=== PATIENT | female | born 1980 | race American Indian/Alaskan Native ===

== ENCOUNTER 2018-02-04 18:21 | Observation (INO) | payer MEDICAID ==
[2018-02-04] MEDS ORDERED: Sodium Chloride 0.9% 500 ML IV STA (18:49)
[2018-02-04] MEDS ORDERED: Metoprolol 1 mg/ml Inj IVP ONE ×3 (18:50→20:41)
[2018-02-04 18:57] LABS: URINE APPEARANCE CLEAR (CLEAR); URINE BILIRUBIN NEGATIVE (NEGATIVE); URINE BLOOD NEGATIVE (NEGATIVE); URINE COLOR YELLOW (YELLOW); URINE GLUCOSE (UA) NEGATIVE (NEGATIVE); URINE LEUKOCYTE ESTERASE NEGATIVE Leu/uL (NEGATIVE); URINE PROTEIN 100 mg/dL (<30 mg/dL); URINE UROBILINOGEN 0.2 E.U./dL (<1 E.U./dL)
[2018-02-04 19:00] LABS: HCG,QUALITATIVE URINE NEGATIVE (NEGATIVE)
--- NOTE | 2018-02-04 19:03 | ED PDOC ---
Arrival/HPI - General Chief Complaint: Substance Abuse Time Seen by Provider: 02/04/18 18:39 Historian: Patient - Critical Care Critical Care Minutes: 30 minutes - History of Present Illness Narrative History of Present Illness (Text): 02/04/18 18:58 37 year old female, with past medical history of hypertension, presents with feelings of racing heart and lightheadedness, since this afternoon. Patient states she was smoking hooka with friends after work, when she began "feeling weird". Patient states she became lightheaded. Patient also states she felt her heart pounding and palpitations. Patient states she thought someone put drugs in her hooka, and called her brother. Patient also informs she did not take her hypertension medication today. Patient does not smoke cigarettes or use drugs, yet uses alcohol occasionally. Time/Duration: 1-3 hours Past Medical History - Provider Review Nursing Documentation Reviewed: Yes - Infectious Disease Hx of Infectious Diseases: None - Cardiac Hx Hypertension: Yes - Psychiatric Hx Substance Use: No Family/Social History - Physician Review Nursing Documentation Reviewed: Yes Family/Social History: No Known Family HX Smoking Status: Never Smoked Hx Alcohol Use: Yes Hx Substance Use: No Allergies/Home Meds Allergies/Adverse Reactions: Allergies ciprofloxacin [From Cipro] Allergy (Verified 02/04/18 18:33) URTICARIA Home Medications: Home Meds Medication Instructions Recorded Confirmed Metoprolol Succinate XL [Toprol XL] 50 mg PO BID 10/21/15 02/04/18 RX: Lisinopril [Zestril] 10 mg PO DAILY 02/04/18 02/04/18 Review of Systems - Physician Review All systems were reviewed & negative as marked: Yes - Review of Systems Cardiovascular: Palpitations Neurological: Dizziness (lightheadedness) Physical Exam Vital Signs Reviewed: Yes Vital Signs Temp Pulse Resp BP Pulse Ox 02/04/18 18:45 109 H 20 197/110 H 98 02/04/18 18:23 98 F 114 H 18 208/106 H 99 Temperature: Afebrile Blood Pressure: Hypertensive Pulse: Tachycardic Respiratory Rate: Normal Pain Distress: None Mental Status: Positive for: Alert and Oriented X 3 - Systems Exam Head: Present: Atraumatic, Normocephalic Pupils: Present: PERRL Extroacular Muscles: Present: EOMI Conjunctiva: Present: Normal Mouth: Present: Moist Mucous Membranes Neck: Present: Normal Range of Motion Respiratory/Chest: Present: Clear to Auscultation, Good Air Exchange. No: R espiratory Distress, Accessory Muscle Use Cardiovascular: Present: Regular Rate and Rhythm, Normal S1, S2. No: Murmurs Abdomen: No: Tenderness, Distention, Peritoneal Signs Back: Present: Normal Inspection Upper Extremity: Present: Normal Inspection. No: Cyanosis, Edema Lower Extremity: Present: Normal Inspection. No: Edema Neurological: Present: GCS=15, CN II-XII Intact, Speech Normal Skin: Present: Warm, Dry, Normal Color. No: Rashes Psychiatric: Present: Alert, Oriented x 3, Normal Insight, Normal Concentration, Anxious Medical Decision Making ED Course and Treatment: 02/04/18 19:06 Impression: 37 year old female presents with feelings of racing heart and palpitations. Plan: -- EKG -- Labs -- Lopressor -- Urinalysis -- Reassess and disposition Prior Visits: Notes and results from previous visits were reviewed. Progress Notes: 02/04/18 20:49 Discussed with the biomedical analytical scientist and Dr.G De La Rosa. Patient will be placed on telemetry observation on the hospitalist service. She no longer feels palpitations and her heart rate is markedly improved. Her blood pressure remains elevated. 02/04/18 20:52 EKG shows sinus tachycardia rate approximately [address] or T-wave changes. - Medication Orders Current Medication Orders: Sodium Chloride (Sodium Chloride 0.9%) 500 mls @ 1,000 mls/hr IV .Q30M STA Stop: 02/04/18 19:18 Discontinued Medications Metoprolol Tartrate (Lopressor) 5 mg IVP ONCE ONE Stop: 02/04/18 18:51 - Scribe Statement The provider has reviewed the documentation as recorded by the Jeevan Gutiérrez Provider Scribe Attestation: All medical record entries made by the Scribe were at my direction and personally dictated by me. I have reviewed the chart and agree that the record accurately reflects my personal performance of the history, physical exam, medical decision making, and the department course for this patient. I have also personally directed, reviewed, and agree with the discharge instructions and disposition. Disposition/Present on Arrival - Present on Arrival Any Indicators Present on Arrival: No History of DVT/PE: No History of Uncontrolled Diabetes: No Urinary Catheter: No History of Decub. Ulcer: No History Surgical Site Infection Following: None - Disposition Have Diagnosis and Disposition been Completed?: Yes Diagnosis: Hypertension, Palpitations Disposition: HOSPITALIZED Disposition Time: 20:53 Patient Plan: Observation, Telemetry Patient Problems: Current Active Problems Problem Status Onset Hypertension Acute Palpitations Acute Condition: IMPROVED
[2018-02-04 19:04] LABS: URINE RBC NEGATIVE /hpf (0-2); URINE WBC 0 - 2 /hpf (0-6)
[2018-02-04 19:15] LABS: EOS % 0.3 % (1.5-5.0); GRAN # 5.45 (1.4-6.5); GRAN % 69.5 % (50.0-68.0); HEMOGLOBIN 11.3 g/dL (12.0-16.0); LYMPH # 2.1 (1.2-3.4); LYMPH % 26.8 % (22.0-35.0); MEAN CELL VOLUME 85.1 fl (80.0-105.0); MEAN CORPUSCULAR HEMOGLOBIN 28.5 pg (25.0-35.0); MEAN CORPUSCULAR HGB CONC 33.4 g/dl (31.0-37.0); MEAN PLATELET VOLUME 9.4 fl (7.0-11.0); MONO # 0.3 (0.1-0.6); MONO % 3.4 % (1.0-6.0); RBC 3.97 10^6/uL (3.5-6.1); RED CELL DISTRIBUTION WIDTH 11.8 % (11.5-14.5); WHITE BLOOD COUNT 7.8 10^3/ul (4.5-11.0)
[2018-02-04 19:29] LABS: ACETAMINOPHEN < 10.0 ug/ml (10.0-20.0); SALICYLATE 3 mg/dL (2.0-20.0)
[2018-02-04 19:38] LABS: BARBITURATES, UR NEGATIVE (NEGATIVE); BENZODIAZEPINES, UR NEGATIVE (NEGATIVE); OPIATES, UR NEGATIVE (NEGATIVE); PHENCYCLIDINE, UR NEGATIVE (NEGATIVE)
[2018-02-04 19:39] LABS: ALB/GLOB RATIO 1.3 (1.1-1.8); ALBUMIN 4.8 g/dL (3.0-4.8); ALT/SGPT 21 U/L (7-56); AST/SGOT 22 U/L (14-36); BLOOD UREA NITROGEN 11 mg/dL (7-21); CALCIUM 8.7 mg/dL (8.4-10.5); GFR NON-AFRICAN AMERICAN > 60
[2018-02-04] MEDS ORDERED: Metoprolol Succinate 50 mg XL Tab PO SCH (23:15)
[2018-02-04] MEDS ORDERED: Potassium Chloride 20 mEq ER Tab PO STA (23:23)
[2018-02-05] MEDS ORDERED: Labetalol 5 mg/ml Inj 20ML IV STA (00:10)
--- NOTE | 2018-02-05 00:27 | CP.PCM.PCO ---
Addendum Addendum: Night float progress note S: Resident paged for pt complaining of throbbing L sided headache. Pt seen immediately after page was placed. Pt complains of L sided headache, with L sided leg tingling. Full neuro examination was done. Pt denies chest pain, palpitations, SOB, diarrhea, constipation, diarrhea. O: BP has dropped to 161/104 P: 92 after given Hydralazine and lopressor IVP. No focal neuro deficits on neuro exam. CN 2-12 intact. Sensation/strength intact b/l u/l extremities. A/P: Continue monitor pt neuro check q2h Lisinopril po 10mg
--- NOTE | 2018-02-05 01:44 | CP.PCM.HP ---
History of Present Illness - History of Present Illness History of Present Illness: HISTORY & PHYSICAL NOTE FOR HOSPITALIST TEAM Kerline Morales D.O. PGY-1 CC: Lightheadedness, vision changes, chest pain, palpitations 37 y/o F with LMP 6 days ago with regular menstrual cycles with PMH of HTN presents with complaints of lightheadedness, dizziness, chest palpitations, chest pain and vision changes after she had smoked hookah (flavored tobacco) at a friends house earlier this afternoon. She started to feel "wobbly", chest palpitations, chest tightness, nausea, drowsiness and L sided lower extremity numbness about 20 minutes after she inhaled the smoke. She reports that she smokes on occasion, however only had an adverse reaction this one particular time. She is unsure of whether there were any other illicit drugs on the tobacco, but does not recall seeing illicit drugs nearby. She denies any other illicit drug use. She took an excedrin tablet without relief. She reports that s he had HTN for several years, however is non-compliant with her medications. She works 2 jobs and admits she is very stressed. She denies recent travel. She denies fevers, chills, shortness of breath, vomiting, weakness, constipation, diarrhea, dysuria PMD: Dr. Mendes Cardio: [facility] [place] PMH: HTN, endometrial hyperplasia, fibroids All: Ciprofloxacin- hives SH: Denies smoking, alcohol PSH: denies Hosp: 10 years ago-elevated d-dimer FH: Mother: HTN. Father: Stroke Meds: Metoprolol, lisinopril. Present on Admission - Present on Admission Any Indicators Present on Admission: No Review of Systems - Review of Systems Review of Systems: as per HPI Past Patient History - Infectious Disease Hx of Infectious Diseases: None - Past Social History Smoking Status: Never Smoked - CARDIAC Hx Cardiac Disorders: Yes Hx Hypertension: Yes - PULMONARY Hx Respiratory Disorders: Yes Hx Asthma: Yes Hx Pneumonia: Yes - NEUROLOGICAL Hx Neurological Disorder: No - HEENT Hx HEENT Problems: No - RENAL Hx Chronic Kidney Disease: No - ENDOCRINE/METABOLIC Hx Endocrine Disorders: No - HEMATOLOGICAL/ONCOLOGICAL Hx Blood Disorders: No - INTEGUMENTARY Hx Dermatological Problems: No - MUSCULOSKELETAL/RHEUMATOLOGICAL Hx Musculoskeletal Disorders: No Hx Falls: No - GASTROINTESTINAL Hx Gastrointestinal Disorders: Yes Hx Ulcer: Yes - GENITOURINARY/GYNECOLOGICAL Hx Genitourinary Disorders: No - PSYCHIATRIC Hx Psychophysiologic Disorder: No Hx Substance Use: No - SURGICAL HISTORY Hx Surgeries: No Meds Allergies/Adverse Reactions: Allergies Allergy/AdvReac Type Severity Reaction Status Date / Time ciprofloxacin [From Cipro] Allergy URTICARIA Verified 02/04/18 18:33 Physical Exam - Constitutional Appears: Well, Non-toxic, No Acute Distress - Head Exam Head Exam: ATRAUMATIC, NORMAL INSPECTION - Eye Exam Eye Exam: EOMI, Normal appearance, PERRL - ENT Exam ENT Exam: Mucous Membranes Moist, Normal Exam - Neck Exam Neck exam: Positive for: Normal Inspection - Respiratory Exam Respiratory Exam: Clear to Auscultation Bilateral, NORMAL BREATHING PATTERN - Cardiovascular Exam Cardiovascular Exam: REGULAR RHYTHM, +S1, +S2 - GI/Abdominal Exam GI & Abdominal Exam: Normal Bowel Sounds, Soft - Extremities Exam Extremities exam: Positive for: normal inspection, pedal pulses present. Negative for: calf tenderness - Back Exam Back exam: NORMAL INSPECTION - Neurological Exam Neurological exam: Alert, CN II-XII Intact, Oriented x3 - Psychiatric Exam Psychiatric exam: Normal Affect, Normal Mood - Skin Skin Exam: Dry, Intact, Warm Results - Vital Signs Recent Vital Signs: Last Vital Signs Temp 98.0 F 02/04/18 23:19 Pulse 75 02/04/18 23:34 Resp 17 02/04/18 23:19 BP 175/121 H 02/04/18 23:34 Pulse Ox 100 02/04/18 23:19 - Labs Result Diagrams: 02/04/18 19:08 02/04/18 19:08 Labs: Laboratory Results - last 24 hr 02/04/18 02/04/18 02/04/18 18:53 18:53 19:08 WBC 7.8 RBC 3.97 Hgb 11.3 L Hct 33.8 L MCV 85.1 MCH 28.5 MCHC 33.4 RDW 11.8 Plt Count 276 MPV 9.4 Gran % 69.5 H Lymph % (Auto) 26.8 [place] % (Auto) 3.4 Eos % (Auto) 0.3 L Baso % (Auto) 0.0 Gran # 5.45 Lymph # (Auto) 2.1 [place] # (Auto) 0.3 Eos # (Auto) 0.0 Baso # (Auto) 0.00 D-Dimer, Quantitative Sodium Potassium Chloride Carbon Dioxide Anion Gap BUN Creatinine Est GFR ( Amer) Est GFR (Non-Af Amer) Random Glucose Calcium Magnesium Total Bilirubin AST ALT Alkaline Phosphatase Total Creatine Kinase Total Protein Albumin Globulin Albumin/Globulin Ratio Urine Color Yellow Urine Appearance Clear Urine pH 6.0 Ur Specific Bunch >= 1.030 Urine Protein 100 H Urine Glucose (UA) Negative Urine Ketones Negative Urine Blood Negative Urine Nitrate Negative Urine Bilirubin Negative Urine Urobilinogen 0.2 Ur Leukocyte Esterase Negative Urine RBC Negative Urine WBC 0 - 2 Ur Epithelial Cells 1 - 3 Urine Bacteria None Urine HCG, Qual Negative Salicylates Urine Opiates Screen Negative Urine Methadone Screen Negative Acetaminophen Ur Barbiturates Screen Negative Ur Phencyclidine Scrn Negative Ur Amphetamines Screen Negative U Benzodiazepines Scrn Negative U Oth Cocaine Metabols Negative U Cannabinoids Screen Positive H Alcohol, Quantitative 02/04/18 02/04/18 02/04/18 19:08 19:08 19:08 WBC RBC Hgb Hct MCV MCH MCHC RDW Plt Count MPV Gran % Lymph % (Auto) [place] % (Auto) Eos % (Auto) Baso % (Auto) Gran # Lymph # (Auto) [place] # (Auto) Eos # (Auto) Baso # (Auto) D-Dimer, Quantitative Sodium 139 Potassium 3.0 L Chloride 99 Carbon Dioxide 27 Anion Gap 16 BUN 11 Creatinine 0.8 Est GFR ( Amer) > 60 Est GFR (Non-Af Amer) > 60 Random Glucose 132 H Calcium 8.7 Magnesium 1.8 Total Bilirubin 0.3 AST 22 ALT 21 Alkaline Phosphatase 53 Total Creatine Kinase 125 Total Protein 8.6 H Albumin 4.8 Globulin 3.8 Albumin/Globulin Ratio 1.3 Urine Color Urine Appearance Urine pH Ur Specific Bunch Urine Protein Urine Glucose (UA) Urine Ketones Urine Blood Urine Nitrate Urine Bilirubin Urine Urobilinogen Ur Leukocyte Esterase Urine RBC Urine WBC Ur Epithelial Cells Urine Bacteria Urine HCG, Qual Salicylates 3 Urine Opiates Screen Urine Methadone Screen Acetaminophen < 10.0 L Ur Barbiturates Screen Ur Phencyclidine Scrn Ur Amphetamines Screen U Benzodiazepines Scrn U Oth Cocaine Metabols U Cannabinoids Screen Alcohol, Quantitative < 10 02/04/18 19:20 WBC RBC Hgb Hct MCV MCH MCHC RDW Plt Count MPV Gran % Lymph % (Auto) [place] % (Auto) Eos % (Auto) Baso % (Auto) Gran # Lymph # (Auto) [place] # (Auto) Eos # (Auto) Baso # (Auto) D-Dimer, Quantitative 207 Sodium Potassium Chloride Carbon Dioxide Anion Gap BUN Creatinine Est GFR ( Amer) Est GFR (Non-Af Amer) Random Glucose Calcium Magnesium Total Bilirubin AST ALT Alkaline Phosphatase Total Creatine Kinase Total Protein Albumin Globulin Albumin/Globulin Ratio Urine Color Urine Appearance Urine pH Ur Specific Bunch Urine Protein Urine Glucose (UA) Urine Ketones Urine Blood Urine Nitrate Urine Bilirubin Urine Urobilinogen Ur Leukocyte Esterase Urine RBC Urine WBC Ur Epithelial Cells Urine Bacteria Urine HCG, Qual Salicylates Urine Opiates Screen Urine Methadone Screen Acetaminophen Ur Barbiturates Screen Ur Phencyclidine Scrn Ur Amphetamines Screen U Benzodiazepines Scrn U Oth Cocaine Metabols U Cannabinoids Screen Alcohol, Quantitative Assessment & Plan - Assessment and Plan (Free Text) Assessment: 37 y/o F with PMH of HTN, non compliant with medications admitted for hyper tensive crisis. Pt presented with complaints of chest tightness, dizziness, vision changes and nausea after smoking hookah (tobacco). She arrived to ED wit BP of 208/106, and Utox positive for cannabinoids. She was treated with lopressor x 3 in ED and continued with Labetalol overnight. BP improved to 170s/100s. Pt complained of L sided lower extremity numbness and L sided throbbing headache overnight. CT Head was order and was negative. Plan: Hypertensive crisis likely secondary to non-compliance vs stress vs illicit drug use Start Labetalol 20mg IVP Monitor for end-organ damage Continue home metoprolol Continue home lisinopril f/u repeat head CT HHD Chest pain r/o ACS Trend EKG & troponin Start nitroglycerin prn pain Hypokalemia Presented with K: 3.0. Replete as necessary Monitor t-wave changes on EKG Illicit drug use Urine cannibinoid (+) Advise cessation DVT/GI ppx: lvx/ptx Case seen, examined and discussed with attending physician, Dr. De La Rosa
[2018-02-05] MEDS ORDERED: Labetalol 5 mg/ml Inj 20ML IV ONE (06:04)
[2018-02-05 06:31] VITALS: RESP 20; O2SAT 96
[2018-02-05 07:12] LABS: EOS % 0.1 % (1.5-5.0); GRAN # 7.82 (1.4-6.5); GRAN % 77.3 % (50.0-68.0); HEMOGLOBIN 11.6 g/dL (12.0-16.0); LYMPH % 19.7 % (22.0-35.0); MEAN CELL VOLUME 85.3 fl (80.0-105.0); MEAN CORPUSCULAR HEMOGLOBIN 28.4 pg (25.0-35.0); MEAN CORPUSCULAR HGB CONC 33.3 g/dl (31.0-37.0); MONO # 0.3 (0.1-0.6); MONO % 2.9 % (1.0-6.0); RBC 4.08 10^6/uL (3.5-6.1); RED CELL DISTRIBUTION WIDTH 11.9 % (11.5-14.5); WHITE BLOOD COUNT 10.1 10^3/ul (4.5-11.0)
[2018-02-05 07:35] LABS: ALB/GLOB RATIO 1.2 (1.1-1.8); ALBUMIN 4.4 g/dL (3.0-4.8); ALT/SGPT 17 U/L (7-56); AST/SGOT 25 U/L (14-36); B-TYPE NATRIURETIC PEPTIDE 123 pg/mL (0-450); BLOOD UREA NITROGEN 8 mg/dL (7-21); CALCIUM 9.2 mg/dL (8.4-10.5); GFR NON-AFRICAN AMERICAN > 60; HDL CHOLESTEROL 40 mg/dL (29-60); TROPONIN I < 0.01 ng/mL
[2018-02-05 07:40] LABS: LDL CHOLESTEROL 126 mg/dL (0-129)
--- NOTE | 2018-02-05 09:29 | CARD ---
APPROVED REPORT Date of service: 02/04/2018 EKG Measurement Heart [id number] <Conclusion> Sinus tachycardia Nonspecific ST and T wave abnormality No change
[2018-02-05] MEDS ORDERED: Enoxaparin 40 mg Syringe SC SCH (10:00)
[2018-02-05 13:10] VITALS: BP 139/102; TEMP 98.3
--- NOTE | 2018-02-05 13:21 | CT ---
Date of service: 02/05/2018 PROCEDURE: CT HEAD WITHOUT CONTRAST. HISTORY: Headache COMPARISON: None available. TECHNIQUE: Axial computed tomography images were obtained through the head/brain without intravenous contrast. Supplemental Coronal and Sagittal projectections created and reviewed. Radiation dose: Total exam DLP = 929.09 mGy-cm. This CT exam was performed using one or more of the following dose reduction techniques: Automated exposure control, adjustment of the mA and/or kV according to patient size, and/or use of iterative reconstruction technique. FINDINGS: HEMORRHAGE: No intracranial hemorrhage. BRAIN: No mass effect or edema. No atrophy or chronic microvascular ischemic changes. VENTRICLES: Unremarkable. No hydrocephalus. CALVARIUM: Unremarkable. PARANASAL SINUSES: Unremarkable as visualized. No significant inflammatory changes. MASTOID AIR CELLS: Unremarkable as visualized. No inflammatory changes. OTHER FINDINGS: None. IMPRESSION: No acute intracranial abnormalities. No significant findings to account for the clinical presentation. Concordant results (preliminary interpretation) provided by [employer]. Procedure Completed: 01:42. Preliminary Report: Dictated and Authenticated: 02:35. Final Interpretation: 13:19. February 05, 2018.
--- NOTE | 2018-02-05 13:25 | RAD ---
Date of service: 02/04/2018 HISTORY: Chest pain, palpitations. COMPARISON: No prior. FINDINGS: LUNGS: No active pulmonary disease. PLEURA: No significant pleural effusion identified, no pneumothorax apparent. CARDIOVASCULAR: Normal. OSSEOUS STRUCTURES: No significant abnormalities. VISUALIZED UPPER ABDOMEN: Normal. OTHER FINDINGS: None. IMPRESSION: No active disease.
[2018-02-05 14:43] VITALS: PULSE 82
--- NOTE | 2018-02-05 20:12 | CP.PCM.DIS ---
<Akshat Westfall - Last Filed: 02/05/18 19:33> Provider - Provider Date of Admission: 02/04/18 20:54 Attending physician: Guanako Ramos MD Time Spent in preparation of Discharge (in minutes): 45 Diagnosis - Discharge Diagnosis (1) Headache Status: Acute (2) Hypertension Status: Acute (3) Palpitations Status: Acute Hospital Course - Lab Results Lab Results: Most Recent Lab Values WBC 10.1 10^3/ul (4.5-11.0) D 02/05/18 06:30 RBC 4.08 10^6/uL (3.5-6.1) 02/05/18 06:30 Hgb 11.6 g/dL (12.0-16.0) L 02/05/18 06:30 Hct 34.8 % (36.0-48.0) L 02/05/18 06:30 MCV 85.3 fl (80.0-105.0) 02/05/18 06:30 MCH 28.4 pg (25.0-35.0) 02/05/18 06:30 MCHC 33.3 g/dl (31.0-37.0) 02/05/18 06:30 RDW 11.9 % (11.5-14.5) 02/05/18 06:30 Plt Count 299 10^3/uL (120.0-450.0) 02/05/18 06:30 MPV 10.0 fl (7.0-11.0) 02/05/18 06:30 Gran % 77.3 % (50.0-68.0) H 02/05/18 06:30 Lymph % (Auto) 19.7 % (22.0-35.0) L 02/05/18 06:30 [place] % (Auto) 2.9 % (1.0-6.0) 02/05/18 06:30 Eos % (Auto) 0.1 % (1.5-5.0) L 02/05/18 06:30 Baso % (Auto) 0.0 % (0.0-3.0) 02/05/18 06:30 Gran # 7.82 (1.4-6.5) H 02/05/18 06:30 Lymph # (Auto) 2.0 (1.2-3.4) 02/05/18 06:30 [place] # (Auto) 0.3 (0.1-0.6) 02/05/18 06:30 Eos # (Auto) 0.0 (0.0-0.7) 02/05/18 06:30 Baso # (Auto) 0.00 K/mm3 (0.0-2.0) 02/05/18 06:30 D-Dimer, Quantitative 207 ng/mlDDU (0-243) 02/04/18 19:20 Sodium 142 mmol/L (132-148) 02/05/18 06:30 Potassium 3.8 mmol/L (3.6-5.0) 02/05/18 06:30 Chloride 106 mmol/L (98-107) 02/05/18 06:30 Carbon Dioxide 27 mmol/L (21-33) 02/05/18 06:30 Anion Gap 12 (10-20) 02/05/18 06:30 BUN 8 mg/dL (7-21) 02/05/18 06:30 Creatinine 0.8 mg/dl (0.7-1.2) 02/05/18 06:30 Est GFR ( Amer) > 60 02/05/18 06:30 Est GFR (Non-Af Amer) > 60 02/05/18 06:30 Random Glucose 97 mg/dL (70-110) 02/05/18 06:30 Calcium 9.2 mg/dL (8.4-10.5) 02/05/18 06:30 Phosphorus 3.3 mg/dL (2.5-4.5) 02/05/18 06:30 Magnesium 2.0 mg/dL (1.7-2.2) 02/05/18 06:30 Total Bilirubin 0.4 mg/dL (0.2-1.3) 02/05/18 06:30 AST 25 U/L (14-36) 02/05/18 06:30 ALT 17 U/L (7-56) 02/05/18 06:30 Alkaline Phosphatase 50 U/L (38-126) 02/05/18 06:30 Total Creatine Kinase 125 U/L (35-230) 02/04/18 19:08 Troponin I < 0.01 ng/mL 02/05/18 14:05 NT-Pro-B Natriuret Pep 123 pg/mL (0-450) 02/05/18 06:30 Total Protein 8.1 g/dL (5.8-8.3) 02/05/18 06:30 Albumin 4.4 g/dL (3.0-4.8) 02/05/18 06:30 Globulin 3.7 gm/dL 02/05/18 06:30 Albumin/Globulin Ratio 1.2 (1.1-1.8) 02/05/18 06:30 Triglycerides 79 mg/dL (35-160) 02/05/18 06:30 Cholesterol 203 mg/dL (130-200) H 02/05/18 06:30 LDL Cholesterol Direct 126 mg/dL (0-129) 02/05/18 06:30 HDL Cholesterol 40 mg/dL (29-60) 02/05/18 06:30 TSH 3rd Generation 0.55 mIU/mL (0.46-4.68) 02/05/18 06:30 Urine Color Yellow (YELLOW) 02/04/18 18:53 Urine Appearance Clear (CLEAR) 02/04/18 18:53 Urine pH 6.0 (4.7-8.0) 02/04/18 18:53 Ur Specific [place] >= 1.030 (1.005-1.035) 02/04/18 18:53 Urine Protein 100 mg/dL (<30 mg/dL) H 02/04/18 18:53 Urine Glucose (UA) Negative mg/dL (NEGATIVE) 02/04/18 18:53 Urine Ketones Negative mg/dL (NEGATIVE) 02/04/18 18:53 Urine Blood Negative (NEGATIVE) 02/04/18 18:53 Urine Nitrate Negative (NEGATIVE) 02/04/18 18:53 Urine Bilirubin Negative (NEGATIVE) 02/04/18 18:53 Urine Urobilinogen 0.2 E.U./dL (<1 E.U./dL) 02/04/18 18:53 Ur Leukocyte Esterase Negative Larry/uL (NEGATIVE) 02/04/18 18:53 Urine RBC Negative /hpf (0-2) 02/04/18 18:53 Urine WBC 0 - 2 /hpf (0-6) 02/04/18 18:53 Ur Epithelial Cells 1 - 3 /hpf (0-5) 02/04/18 18:53 Urine Bacteria None (NEG) 02/04/18 18:53 Urine HCG, Qual Negative (NEGATIVE) 02/04/18 18:53 Salicylates 3 mg/dL (2.0-20.0) 02/04/18 19:08 Urine Opiates Screen Negative (NEGATIVE) 02/04/18 18:53 Urine Methadone Screen Negative (NEGATIVE) 02/04/18 18:53 Acetaminophen < 10.0 ug/ml (10.0-20.0) L 02/04/18 19:08 Ur Barbiturates Screen Negative (NEGATIVE) 02/04/18 18:53 Ur Phencyclidine Scrn Negative (NEGATIVE) 02/04/18 18:53 Ur Amphetamines Screen Negative (NEGATIVE) 02/04/18 18:53 U Benzodiazepines Scrn Negative (NEGATIVE) 02/04/18 18:53 U Oth Cocaine Metabols Negative (NEGATIVE) 02/04/18 18:53 U Cannabinoids Screen Positive (NEGATIVE) H 02/04/18 18:53 Alcohol, Quantitative < 10 mg/dL (0-10) 02/04/18 19:08 - Hospital Course Hospital Course: Hospital Course 37 year old female with past medical history of HTN, headache, HLD who presented with lightheadedness, dizziness, chest palpations, chest pain and vision changes after smoking hookah at a friend's home. Patient indicated she felt wobbly and had chest tightness. She was [place] [facility] [facility] and found to have elevated blood pressure with systolic BP being 208 and diastolic BP being 106. Patient was given lopressor with minimal reduction of blood pressure. Patient was admitted to telemetry for observation and further management. Patient had three troponins drawn all of which were negative. Patient was restarted on her home medication of Lisinopril 10mg and an increased dosage of metoprolol 50mg from 25mg BID. Patient had Urine drug screen showing positive for canabis. Patient was advised on smoking cessation and counseling. Patient blood pressure stabilized and she was asymptomatic, denying chest pain, shortness of breath, abdominal pain, vision changes. She was discharged home with prescriptions for Lisinopril 10mg Daily, Metoprolol 50mg BID, aspirin 81mg, Lipitor 10mg. Discharge planning including medication reconciliation, outpatient follow up and signs and symptoms to be aware of for return to emergency department were discussed in detail. All patient's questions were answered and to her verbal satisfaction. Discharge Exam - Head Exam Head Exam: ATRAUMATIC, NORMAL INSPECTION - Eye Exam Eye Exam: EOMI, PERRL - ENT Exam ENT Exam: Mucous Membranes Moist - Neck Exam Neck exam: Full Rom - Respiratory Exam Respiratory Exam: Clear to PA & Lateral, NORMAL BREATHING PATTERN, UNREMARKABLE - Cardiovascular Exam Cardiovascular Exam: REGULAR RHYTHM, +S1, +S2 - GI/Abdominal Exam GI & Abdominal Exam: Normal Bowel Sounds, Unremarkable - Extremities Exam Extremities exam: calf tenderness - Back Exam Back exam: absent: CVA tenderness (L), CVA tenderness (R), paraspinal tenderness - Neurological Exam Neurological exam: CN II-XII Intact, Normal Gait, Oriented x3, Reflexes Normal - Psychiatric Exam Psychiatric exam: Normal Affect, Normal Mood - Skin Skin Exam: Dry, Intact, Warm Discharge Plan - Discharge Medications Prescriptions: Aspirin [Ecotrin] 81 mg PO DAILY #30 tabec Atorvastatin [Lipitor] 10 mg PO DIN #30 tab Metoprolol Tartrate [Lopressor] 50 mg PO BRKDIN #60 tab - Follow Up Plan Condition: IMPROVED Disposition: HOME/ ROUTINE Instructions: DASH Diet, Low Salt Diet, Controlling Your Blood Pressure Through Lifestyle, Palpitations (DC), Acute Headache (DC), Hypertension (DC) Additional Instructions: Please follow up with your primary care physician within 3-5 days upon discharge Take medications as prescribed to you, with special consideration to your anti- hypertensive medications Medication list as follows - Aspirin 81 mg by mouth Daily - Lisinopril 10mg by mouth Daily - Metoprolol Tartrate 50mg by mouth twice a day - Lipitor 10mg by mouth daily Return to the nearest ED if you being experiencing symptoms of chest discomfort, trouble breathing, changes in vision, headache unalleviated by medication <Guanako Ramos - Last Filed: 02/06/18 07:38> Provider - Provider Date of Admission: 02/04/18 20:54 Attending physician: Guanako Ramos MD Hospital Course - Lab Results Lab Results: Most Recent Lab Values WBC 10.1 10^3/ul (4.5-11.0) D 02/05/18 06:30 RBC 4.08 10^6/uL (3.5-6.1) 02/05/18 06:30 Hgb 11.6 g/dL (12.0-16.0) L 02/05/18 06:30 Hct 34.8 % (36.0-48.0) L 02/05/18 06:30 MCV 85.3 fl (80.0-105.0) 02/05/18 06:30 MCH 28.4 pg (25.0-35.0) 02/05/18 06:30 MCHC 33.3 g/dl (31.0-37.0) 02/05/18 06:30 RDW 11.9 % (11.5-14.5) 02/05/18 06:30 Plt Count 299 10^3/uL (120.0-450.0) 02/05/18 06:30 MPV 10.0 fl (7.0-11.0) 02/05/18 06:30 Gran % 77.3 % (50.0-68.0) H 02/05/18 06:30 Lymph % (Auto) 19.7 % (22.0-35.0) L 02/05/18 06:30 [place] % (Auto) 2.9 % (1.0-6.0) 02/05/18 06:30 Eos % (Auto) 0.1 % (1.5-5.0) L 02/05/18 06:30 Baso % (Auto) 0.0 % (0.0-3.0) 02/05/18 06:30 Gran # 7.82 (1.4-6.5) H 02/05/18 06:30 Lymph # (Auto) 2.0 (1.2-3.4) 02/05/18 06:30 [place] # (Auto) 0.3 (0.1-0.6) 02/05/18 06:30 Eos # (Auto) 0.0 (0.0-0.7) 02/05/18 06:30 Baso # (Auto) 0.00 K/mm3 (0.0-2.0) 02/05/18 06:30 D-Dimer, Quantitative 207 ng/mlDDU (0-243) 02/04/18 19:20 Sodium 142 mmol/L (132-148) 02/05/18 06:30 Potassium 3.8 mmol/L (3.6-5.0) 02/05/18 06:30 Chloride 106 mmol/L (98-107) 02/05/18 06:30 Carbon Dioxide 27 mmol/L (21-33) 02/05/18 06:30 Anion Gap 12 (10-20) 02/05/18 06:30 BUN 8 mg/dL (7-21) 02/05/18 06:30 Creatinine 0.8 mg/dl (0.7-1.2) 02/05/18 06:30 Est GFR ( Amer) > 60 02/05/18 06:30 Est GFR (Non-Af Amer) > 60 02/05/18 06:30 Random Glucose 97 mg/dL (70-110) 02/05/18 06:30 Calcium 9.2 mg/dL (8.4-10.5) 02/05/18 06:30 Phosphorus 3.3 mg/dL (2.5-4.5) 02/05/18 06:30 Magnesium 2.0 mg/dL (1.7-2.2) 02/05/18 06:30 Total Bilirubin 0.4 mg/dL (0.2-1.3) 02/05/18 06:30 AST 25 U/L (14-36) 02/05/18 06:30 ALT 17 U/L (7-56) 02/05/18 06:30 Alkaline Phosphatase 50 U/L (38-126) 02/05/18 06:30 Total Creatine Kinase 125 U/L (35-230) 02/04/18 19:08 Troponin I < 0.01 ng/mL 02/05/18 14:05 NT-Pro-B Natriuret Pep 123 pg/mL (0-450) 02/05/18 06:30 Total Protein 8.1 g/dL (5.8-8.3) 02/05/18 06:30 Albumin 4.4 g/dL (3.0-4.8) 02/05/18 06:30 Globulin 3.7 gm/dL 02/05/18 06:30 Albumin/Globulin Ratio 1.2 (1.1-1.8) 02/05/18 06:30 Triglycerides 79 mg/dL (35-160) 02/05/18 06:30 Cholesterol 203 mg/dL (130-200) H 02/05/18 06:30 LDL Cholesterol Direct 126 mg/dL (0-129) 02/05/18 06:30 HDL Cholesterol 40 mg/dL (29-60) 02/05/18 06:30 TSH 3rd Generation 0.55 mIU/mL (0.46-4.68) 02/05/18 06:30 Urine Color Yellow (YELLOW) 02/04/18 18:53 Urine Appearance Clear (CLEAR) 02/04/18 18:53 Urine pH 6.0 (4.7-8.0) 02/04/18 18:53 Ur Specific [place] >= 1.030 (1.005-1.035) 02/04/18 18:53 Urine Protein 100 mg/dL (<30 mg/dL) H 02/04/18 18:53 Urine Glucose (UA) Negative mg/dL (NEGATIVE) 02/04/18 18:53 Urine Ketones Negative mg/dL (NEGATIVE) 02/04/18 18:53 Urine Blood Negative (NEGATIVE) 02/04/18 18:53 Urine Nitrate Negative (NEGATIVE) 02/04/18 18:53 Urine Bilirubin Negative (NEGATIVE) 02/04/18 18:53 Urine Urobilinogen 0.2 E.U./dL (<1 E.U./dL) 02/04/18 18:53 Ur Leukocyte Esterase Negative [place]/uL (NEGATIVE) 02/04/18 18:53 Urine RBC Negative /hpf (0-2) 02/04/18 18:53 Urine WBC 0 - 2 /hpf (0-6) 02/04/18 18:53 Ur Epithelial Cells 1 - 3 /hpf (0-5) 02/04/18 18:53 Urine Bacteria None (NEG) 02/04/18 18:53 Urine HCG, Qual Negative (NEGATIVE) 02/04/18 18:53 Salicylates 3 mg/dL (2.0-20.0) 02/04/18 19:08 Urine Opiates Screen Negative (NEGATIVE) 02/04/18 18:53 Urine Methadone Screen Negative (NEGATIVE) 02/04/18 18:53 Acetaminophen < 10.0 ug/ml (10.0-20.0) L 02/04/18 19:08 Ur Barbiturates Screen Negative (NEGATIVE) 02/04/18 18:53 Ur Phencyclidine Scrn Negative (NEGATIVE) 02/04/18 18:53 Ur Amphetamines Screen Negative (NEGATIVE) 02/04/18 18:53 U Benzodiazepines Scrn Negative (NEGATIVE) 02/04/18 18:53 U Oth Cocaine Metabols Negative (NEGATIVE) 02/04/18 18:53 U Cannabinoids Screen Positive (NEGATIVE) H 02/04/18 18:53 Alcohol, Quantitative < 10 mg/dL (0-10) 02/04/18 19:08 Attending/Attestation - Attestation I have personally seen and examined this patient.: Yes I have fully participated in the care of the patient.: Yes I have reviewed all pertinent clinical information, including history, physical exam and plan: Yes Notes (Text): 02/05/18 37 year old female with past medical history of hypertension, tobacco and marijuana use who presented with complaint of chest pain and headache. She was found to have elevated blood pressure. She was on lisinopril and metoprolol of which the dose was increased today with improvement of her blood pressure. CT head was negative for acute findings. Headache improved. Chest pain resolved. Serial cardiac enzymes were negative and ACS was ruled out. Started on statin for dyslipidemia. Patient is discharged home to follow up with her pmd. Counselled on smoking cessation. Counselled on marijuana use. Counselled on low fat, low cholesterol, 2 gm Na diet. Guanako Ramos MD Hospitalist.
--- NOTE | 2018-02-06 08:50 | CARD ---
APPROVED REPORT Date of service: 02/05/2018 EKG Measurement Heart [id number] <Conclusion> Normal sinus rhythm PRWP V 1 - 4 NSSTW changes Prolonged QT
--- NOTE | 2018-02-06 09:09 | CARD ---
APPROVED REPORT Date of service: 02/05/2018 EKG Measurement Heart [id number] <Conclusion> Normal sinus rhythm LVH by voltage Nonspecific T wave abnormality Prolonged QT
== END 2018-02-05 17:43 | disposition home or self-care (01) ==
LOC: ED 18:21 → ERH 20:54 → 2RNO 22:45
PROVIDERS: ADMIT Internal Medicine; ATTEND Internal Medicine
DX: I16.9 Hypertensive crisis, unspecified (principal); Z91.14 Patient's other noncompliance with medication regimen; I10 Essential (primary) hypertension; R00.2 Palpitations; F17.200 Nicotine dependence, unspecified, uncomplicated; E87.6 Hypokalemia; R51 Headache; E78.5 Hyperlipidemia, unspecified; F12.90 Cannabis use, unspecified, uncomplicated; Z82.3 Family history of stroke; Z82.49 Family history of ischemic heart disease and other diseases of the circulatory system
CPT/HCPCS: 36415; 70450; 71045; 80053; 80061; 80320; 80324; 80329; 80345; 80346; 80349; 80353; 80358; 80361; 81001; 82550; 83036; 83735; 83880; 83992; 84100; 84443; 84484; 84703; 85025; 85378; 93005; 96372; 96374; 96375; 96376; 99285; C9113; G0378; J0360; J1650; J2405; J7040